=== PATIENT | female | born 1970 | race Caucasian/White ===

== ENCOUNTER → 2019-10-28 15:29 | Outpatient (CLI) | payer OTHER, SELFPAY ==
--- NOTE | ~2019-10-28 | MM_ITS ---
EXAMINATION: MM screening max BI w cornel HISTORY: Screening mammogram TECHNIQUE: Craniocaudal and mediolateral oblique 3-D tomosynthesis images were obtained and synthetic 2-D images were generated. CAD analysis was submitted and interpreted. COMPARISON: 11/14/2017 diagnostic right digital mammogram 04/21/2017 diagnostic right digital mammogram and complete right breast ultrasound 04/07/2017 bilateral digital screening mammogram BREAST PARENCHYMAL COMPOSITION: There are scattered areas of fibroglandular density. FINDINGS: There is no evidence of suspicious mass, calcification, or architectural distortion to sugg est malignancy in either breast. There has been no suspicious interval change. IMPRESSION: 1. No mammographic evidence of malignancy. 2. Recommend routine screening mammography in one year. BI-RADS Category 1: Negative Reviewed, dictated and finalized at location A. UCT MANAGER
== END ==
PROVIDERS: PCP Family Medicine; Visit Provider Family Medicine
DX: Z12.31 Encounter for screening mammogram for malignant neoplasm of breast (principal)
CPT/HCPCS: 77063; 77067

== ENCOUNTER 2019-11-27 01:00 | Day surgery (SDC) | payer OTHER, SELFPAY ==
[2019-11-22 11:20] VITALS: BMI 32.5
[2019-11-27 06:31] VITALS: BP 106/66; PULSE 77; RESP 16; TEMP 36.6; O2SAT 99
[2019-11-27] MEDS: LACTATED RINGERS 1,000 ML 150 ML IV CONT (06:42)
--- NOTE | 2019-11-27 07:24 | WPDANESEPPF ---
Anes - Initial Pre Proc Eval Procedure: Operation Date: 11/27/19 07:30 Proposed Procedures p Screening Colonoscopy - Rosendo Sanders MD Date/Time: 11/27/19 07:24 Surgeon: Rosendo Sanders MD Pre Op Diagnosis: neoplasm screening Patient Data Age: 49 Gender: F Height: 5 ft 9 in Weight: 100 kg Last Vital Signs Temp 97.8 F 11/27/19 06:31 Pulse 77 11/27/19 06:31 Resp 16 11/27/19 06:31 BP 106/66 11/27/19 06:31 Pulse Ox 99 11/27/19 06:31 Allergies Allergy/AdvReac Type Severity Reaction Status Date / Time aspirin AdvReac Mild bleeding Verified 11/27/19 06:30 Home Medications Medication Instructions Recorded Confirmed Type No Home Medications 11/27/19 11/27/19 History Patient hx anesthesia problems: none Family hx anesthesia problems: none PMFSH Past Medical History Medical History (Updated 11/27/19 @ 07:22 by Yordan Khan MD) GERD (gastroesophageal reflux disease) Migraine Family History Family History (Updated 12/23/16 @ 23:56 by DOCTOR UNKNOWN) Mother Hypertension Family history of elevated blood lipids Father Family history of malignant neoplasm of bone, Onset Age: 60 Patient's father is Social History Social History (Updated 09/09/19 @ 10:46 by Veronica Alexander) Smoking status: Former smoker Tobacco type: cigarettes Second hand tobacco smoke exposure: No Smoking end date: 09/18/02 Alcohol intake: current Substance use: never Substance use type: does not use Gender identity (if verbalized by the patient): Male Anes - Eval Final PreProcedure Day of Procedure 11/27/19 07:24 Patient weight: overweight Heart: regular rate and rhythm Lungs: clear to auscultation Airway: Mallampati scale class II Neurological: alert and oriented Last oral intake: >/= 8 hours ASA classification: II Emergent: no Anesthetic plan: proceed Anesthesia type and monitoring: general GIVS and standard monitoring Informed Consent: The patient's anesthetic plan and its attendant risks and benefits were discussed with the patient/family/POA. Questions were solicited and answers provided to the satisfaction of the patient/family/POA.
--- NOTE | 2019-11-27 08:01 | PM.HPGS ---
History of Present Illness History of Present Illness Consent: Risks, benefits, and alternatives have been discussed and questions answered. Patient agrees to proceed with procedure. Chief complaint: neoplasm screening Narrative: Amelia Landin is a 49 year old female here for first screening colonoscopy Review of Systems Constitutional: Constitutional: Denies headache(s) and Denies weakness Eyes: Eyes: Denies blurry vision ENT: Reports Normal hearing present, Denies headache(s) and Denies neck pain Cardiovascular: Cardiovascular: Denies chest pain and Denies dyspnea Respiratory: Respiratory: Denies dyspnea Gastrointestinal: Gastrointestinal: Reports no additional gastrointestinal complaints Genitourinary: Genitourinary: Denies dysuria Musculoskeletal: Musculoskeletal: Denies neck pain Integumentary/Breasts: Skin/Breast: Denies dry skin Neurologic: Reports Normal hearing present, Denies headache(s) and Denies weakness Psychiatric: Psychiatric: Denies anxiety Endocrine: Endocrine: Denies change in body appearance Hematologic/Lymphatic: Hematologic/Lymphatic: Denies easy bleeding Allergic/Immunologic: Allergic/Immunologic: Denies urticaria PMFSH Past Medical History Medical History (Updated 11/27/19 @ 07:22 by Yordan Khan MD) GERD (gastroesophageal reflux disease) Migraine Family History Family History (Updated 12/23/16 @ 23:56 by DOCTOR UNKNOWN) Mother Hypertension Family history of elevated blood lipids Father Family history of malignant neoplasm of bone, Onset Age: 60 Patient's father is Social History Social History (Updated 09/09/19 @ 10:46 by Veronica Alexander) Smoking status: Former smoker Tobacco type: cigarettes Second hand tobacco smoke exposure: No Smoking end date: 09/18/02 Alcohol intake: current Substance use: never Substance use type: does not use Gender identity (if verbalized by the patient): Male Meds Home Medications and Allergies Home Medications Medication Instructions Recorded Confirmed Type No Home Medications 11/27/19 11/27/19 History Allergies Allergy/AdvReac Type Severity Reaction Status Date / Time aspirin AdvReac Mild bleeding Verified 11/27/19 06:30 Vital Signs Vital Signs - 24 hr 11/27/19 06:31 Temperature 97.8 F Pulse Rate 77 Respiratory Rate 16 Blood Pressure 106/66 Pulse Oximetry 99 Exam Const: General: comfortable and no acute distress HENMT: General nose exam: Normal nares present Eyes: General: appearance normal, both eyes and all related structures Neck: Neck: no JVD Resp: Auscultation: clear to auscultation bilaterally Cardio: Rate: regular rate Rhythm: regular rhythm GI: Inspection: non-distended GI Palp: Yes Soft to palpation Skin: General skin exam: normal color Neuro: General: gait normal Speech: normal speech Extrem: General: normal to inspection Psych: Mental Status: mental status grossly normal Assessment and Plan Assessment and plan (1) Colon cancer screening: Code(s): Z12.11 - Encounter for screening for malignant neoplasm of colon Status: Acute Assessment and Plan: will proceed with colonoscopy
[2019-11-27 08:07] VITALS: BP 99/63; PULSE 73; RESP 20; O2SAT 97
[2019-11-27 08:17] VITALS: BP 104/71; PULSE 60; RESP 20; O2SAT 97
[2019-11-27 08:27] VITALS: BP 111/71; PULSE 67; RESP 20; O2SAT 100
== END 2019-11-27 08:37 | disposition home or self-care (01) ==
PROVIDERS: PCP Family Medicine; Visit Provider Internal Medicine Gastroenterology
PROC: 0DJD8ZZ Inspection of Lower Intestinal Tract, Via Natural or Artificial Opening Endoscopic (ICD-10-PCS; CPT 45378; principal; 2019-11-27 07:30)
DX: Z12.11 Encounter for screening for malignant neoplasm of colon (principal); D12.3 Benign neoplasm of transverse colon; D12.5 Benign neoplasm of sigmoid colon; K63.5 Polyp of colon; K21.9 Gastro-esophageal reflux disease without esophagitis; Z87.891 Personal history of nicotine dependence
CPT/HCPCS: 45385; 88305; J2704; J7120

== ENCOUNTER → 2021-02-09 17:16 | Outpatient (CLI) | payer OTHER, SELFPAY ==
--- NOTE | ~2021-02-09 | MM_ITS ---
EXAMINATION: MM screening max BI w cornel HISTORY: Screening mammogram TECHNIQUE: Craniocaudal and mediolateral oblique 3-D tomosynthesis images were obtained and synthetic 2-D images were generated. CAD analysis was submitted and interpreted. COMPARISON: 10/28/2019 bilateral digital screening mammogram 11/14/2017 diagnostic right mammogram 04/21/2017 diagnostic right digital mammogram and complete right breast ultrasound 04/07/2017 bilateral digital screening mammogram BREAST PARENCHYMAL COMPOSITION: There are scattered areas of fibroglandular density. FINDINGS: There is no evidence of suspicious mass, calcification, or architectural distortion to sugg est malignancy in either breast. There has been no suspicious interval change. IMPRESSION: 1. No mammographic evidence of malignancy. 2. Recommend routine screening mammography in one year. BI-RADS Category 1: Negative Reviewed, dictated and finalized at location A.
== END ==
PROVIDERS: PCP Family Medicine; Visit Provider Physician Assistant
DX: Z12.31 Encounter for screening mammogram for malignant neoplasm of breast (principal)
CPT/HCPCS: 77063; 77067

== ENCOUNTER 2021-11-01 11:01 | Outpatient (CLI) | payer OTHER, SELFPAY ==
--- NOTE | ~2021-11-01 | US_ITS ---
EXAMINATION: US soft tissue UE RT DATE: 11/01/2021 11:27 INDICATION: Lump at the posterior right upper arm TECHNIQUE: Multiple grayscale and Doppler ultrasound images of the region of concern at the posterior right upper arm were obtained. COMPARISON: None FINDINGS: There is an approximately 5.6 x 3.1 x 4.6 cm intramuscular hyperechoic mass with prominent posterior acoustic shadowing. The appearance suggests a macroscopic fat intramuscular lipoma. No other abnormal masses or fluid collections identified. IMPRESSION: 1. 5.6 x 2.1 x 4.6 cm mass with imaging features suggestive but not diagnostic of an intramuscular li flor or other fatty tumor which less likely could include liposarcoma. Would recommend correlation wi pre and postcontrast MRI or CT . Reviewed, dictated and finalized at location A. IAL PROCEDURE TECH IMPRESSION: 1. 5.6 x 2.1 x 4.6 cm mass with imaging features suggestive but not diagnostic of an intramuscular lipoma or other fatty tumor which less likely could include liposarcoma. Would recommend correlation with pre and postcontrast MRI or CT .
== END 2021-11-01 11:02 | disposition home or self-care (01) ==
LOC: ANHIMG 11:05
PROVIDERS: PCP Family Medicine; Visit Provider Family Medicine
DX: R22.31 Localized swelling, mass and lump, right upper limb (principal)
CPT/HCPCS: 76882

== ENCOUNTER 2021-11-08 15:48 | Outpatient (CLI) | payer OTHER, SELFPAY ==
--- NOTE | ~2021-11-08 | CT_ITS ---
EXAMINATION: CT UE RT w con DATE: 11/08/2021 16:24 INDICATION: Mass at the posterior right upper arm TECHNIQUE: High resolution computed tomography (CT) of the right upper arm was performed with 100 mL Omnipaque-350 intravenous contrast. Additional sagittal and coronal reconstructions were performed. A utomated exposure control and iterative reconstruction technique were employed. The dose-length produ ct was 928.64 mGy-cm. COMPARISON: Ultrasound dated 11/01/2021 FINDINGS: There is a 4.3 x 4.0 x 1.8 cm ovoid mass within the right triceps muscle belly which is predominantly of macroscopic fat attenuation but interspersed with somewhat heterogeneous hazy soft tissue density . No discrete nodular soft tissue densities. At the inferior aspect of the mass the soft tissue densi ty appears thin and linear suggesting muscle fibers which can be seen with an intramuscular lipoma. T he more amorphous density however remains indeterminate and could not exclude atypical lipoma or low- grade liposarcoma. No other masses or fluid collections identified. No pathologically enlarged right axillary lymphadenopathy. Mild right acromioclavicular osteoarthritis. Visualized bones are otherwise unremarkable. The gallbladder and visualized portions of the right kidney and right hepatic lobe are normal. IMPRESSION: 1. 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 The fat however does contain some amorphous soft tissue density and could not absolutely exclude atypical lipoma or low-grade liposarcoma. Would recommend further e valuation with pre and postcontrast MRI which will provide high resolution of the internal architectu re more definitive determination. Reviewed, dictated and finalized at location A. AND CUFF CUTTER IMPRESSION: 1. 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 The fat however petersen s contain some amorphous soft tissue density and could not absolutely exclude a typical lipoma or low-grade liposarcoma. Would recommend further evaluation wit h pre and postcontrast MRI which will provide high resolution of the internal a rchitecture more definitive determination.
== END 2021-11-08 15:49 | disposition home or self-care (01) ==
LOC: ANHIMG 15:53
PROVIDERS: PCP Family Medicine; Visit Provider Nurse Practitioner Gerontology
DX: R22.32 Localized swelling, mass and lump, left upper limb (principal)
CPT/HCPCS: 73201; Q9967

== ENCOUNTER → 2022-04-25 16:56 | Outpatient (CLI) | payer OTHER, SELFPAY ==
--- NOTE | ~2022-04-25 | MM_ITS ---
EXAMINATION: MM screening [facility] BI w cornel HISTORY: Screening mammogram TECHNIQUE: Craniocaudal and mediolateral oblique 3-D tomosynthesis images were obtained and synthetic 2-D images were generated. CAD analysis was submitted and interpreted. COMPARISON: 02/09/2021, 10/28/2019 BREAST PARENCHYMAL COMPOSITION: There are scattered areas of fibroglandular density. FINDINGS: There is no suspicious mass, calcification, or architectural distortion to suggest malignan cy in either breast. There has been no suspicious interval change. IMPRESSION: 1. No mammographic evidence of malignancy. 2. Recommend routine screening mammography in one year. BI-RADS Category 1: Negative Reviewed, dictated and finalized at location A.
== END ==
PROVIDERS: PCP Family Medicine; Visit Provider Nurse Practitioner Gerontology
DX: Z12.31 Encounter for screening mammogram for malignant neoplasm of breast (principal)
CPT/HCPCS: 77063; 77067

== ENCOUNTER 2023-04-13 08:07 | Outpatient (CLI) | payer OTHER, SELFPAY ==
--- NOTE | ~2023-04-13 | US_ITS ---
Pelvic ultrasound. Clinical History: Excessive and frequent menstruation Technique: Realtime transabdominal and transvaginal scanning of the pelvis was performed. Color flow Doppler and Doppler spectral analysis were performed. Findings: The uterus is anteverted, and measures 12.1 x 7.4 x 8.1 cm. The endometrial stripe has a t hickness of approximately 15 mm. No focal mass is identified. The right ovary measures 3.7 x 3.1 x 3.2 cm. No significant right ovarian or adnexal mass is seen. The left ovary measures 3.3 x 2.9 x 3.2 cm. No significant left ovarian or adnexal mass is seen. There is no evidence of free fluid in the cul de sac. Impression: Endometrial stripe is poorly delineated, but appears prominent, most likely related to stage in menst rual cycle. If patient is postmenopausal, then additional evaluation would be warranted to assess for endometrial hyperplasia or neoplasm. Reviewed, dictated and finalized at location . Impression: Endometrial stripe is poorly delineated, but appears prominent, most likely rel ated to stage in menstrual cycle. If patient is postmenopausal, then additional evaluation would be warranted to assess for endometrial hyperplasia or neoplas mEstrada
== END 2023-04-13 08:08 | disposition home or self-care (01) ==
PROVIDERS: PCP Family Medicine; Visit Provider Family Medicine
DX: N92.1 Excessive and frequent menstruation with irregular cycle (principal)
CPT/HCPCS: 76856

== ENCOUNTER → 2023-07-29 08:51 | Outpatient (CLI) | payer OTHER, SELFPAY ==
--- NOTE | ~2023-07-29 | MM_ITS ---
EXAMINATION: MM screening max BI w cornel HISTORY: Screening mammogram TECHNIQUE: Craniocaudal and mediolateral oblique 3-D tomosynthesis images were obtained and synthetic 2-D images were generated. CAD analysis was submitted and interpreted. COMPARISON: No prior mammogram is available for comparison at this institution. BREAST PARENCHYMAL COMPOSITION: 04/25/2022, 02/09/2021, 10/28/2019 bilateral screening mammogram examinat ions FINDINGS: 2 There is no evidence of suspicious mass, calcification, or architectural distortion to fry ggest malignancy in either breast. There has been no suspicious interval change. IMPRESSION: 1. No mammographic evidence of malignancy. 2. Recommend routine screening mammography in one year. BI-RADS Category 1: Negative Reviewed, dictated and finalized at location B. IFF
== END ==
PROVIDERS: PCP Family Medicine; Visit Provider Family Medicine
DX: Z12.31 Encounter for screening mammogram for malignant neoplasm of breast (principal)
CPT/HCPCS: 77063; 77067

== ENCOUNTER 2023-09-21 01:45 | Day surgery (SDC) | payer OTHER, SELFPAY ==
[2023-09-07 11:40] VITALS: BMI 36.4
--- NOTE | 2023-09-07 11:48 | PC.NURSE ---
Report to the Outpatient Waiting Room, entrance under the green pavilion located off [facility], at time _1130 on date __09/21/22 . Planned Procedure Time: __1330 . Time changes happen often and if your time is changed the preop area will call you the afternoon before. - You and your visitor will be asked to self-screen and do not enter if you have any COVID symptoms. - A mask is optional within the hospital at this time. Patients may have clear liquids (water, carbonated beverages, clear teas, apple juice) until 3 hours prior to surgery with a maximum of 20 ounces. - No food from midnight until time of surgery - Infants may have breast milk until 4 hours before surgery, formula 6 hours prior to surgery. - Children will be allowed to drink immediately following surgery. If applicable, please bring a bottle or sippy cup to assist with drinking. Juice, water, soda, and popsicles are readily available. For infants on formula, please bring formula the day of surgery. Pacifiers are allowed. Take the following medications with a SIP of water the morning of surgery: __N/A DO NOT STOP ANY OF YOUR OTHER PRESCRIPTION MEDICATIONS PRIOR TO SURGERY ?EXCEPT THE FOLLOWING Medications to discontinue per physician N/A Date to take last dose___N/A Please no make-up, nail british, hairspray, perfume, deodorant, or body powder the day of surgery. No jewelry (including any body piercings) or valuables the day of surgery, leave them at home. Please take a shower or bath the night before, or the morning of, surgery with an antibacterial soap. Wear comfortable, loose fitting clothing. Children are encouraged to wear pajamas. - Jewelry must be removed prior to entering the operating room. Rings and piercings that are not removed may be cut off. - The hospital will not accept responsibility for valuables. - Please leave all valuables, including medications, at home the day of surgery. If you are going home after surgery, a licensed truck driver supervisor must drive you home. - NO public transportation without another adult if you receive anesthesia. - We recommend that an adult stay with you for 24 hours following discharge. - We also recommend that you do not drive, make important decision, drink alcoholic beverages, or take any drugs that were not prescribed by your health care provider for at least 24 hours after your discharge time. For Pediatric surgeries, we recommend two adults accompany the child home. Follow any additional instructions given to you from your surgeon. If you or anyone in your household have experienced Covid symptoms in the past week, please notify your surgeon or the nurse liaison at the phone number below for possible testing. Telephone instructions given to __Amelia Lanidn and asked if any additional questions and then verbalized understanding. Patient advised to call surgeon office or pre surgery nurse liaison [phone] if any additional questions.
--- NOTE | 2023-09-21 09:47 | PM.IMHP ---
H&P: HPI History of Present Illness Date/Time: 09/21/23 09:47 Chief Complaint: abnormal uterine bleeding Narrative: 53-year-old female who presents for hysteroscopy and D&C for abnormal uterine bleeding. Patient has been dealing with heavy prolonged vaginal bleeding for some time. Pelvic ultrasound showed a globally enlarged uterus which I thickened endometrial lining. Recommended tissue sampling. Review of Systems Cardiovascular: Cardiovascular: Denies chest pain, Denies leg edema, Denies palpitations, Denies dyspnea and Denies dyspnea on exertion Respiratory: Respiratory: Denies cough, Denies dyspnea and Denies dyspnea on exertion Gastrointestinal: Gastrointestinal: Denies abdominal pain, Denies constipation, Denies diarrhea, Denies nausea and Denies vomiting Genitourinary: Genitourinary: Denies hematuria, Denies urinary frequency, Denies dysuria, Denies pelvic pain, Denies urinary incontinence and Denies vaginal discharge Neurologic: Reports system reviewed and no additional complaints, except as documented Psychiatric: Psychiatric: Reports no additional psychiatric complaints Endocrine: Endocrine: Denies palpitations PMFSH Past Medical History Medical History Breast mass, right Breast screening, unspecified (11/14/17) Chronic GERD GERD (gastroesophageal reflux disease) Lipid screening Migraine Migraine without aura and with status migrainosus, not intractable Mouth dryness Osteoarthritis of knees, bilateral Primary generalized (osteo)arthritis Tobacco abuse disorder Weight gain Surgical History Surgical History History of recent intraocular surgery January 2020 - vision correction of RT eye (lens replacement) S/P appendectomy 1973 Family History Family History Mother Hypertension Family history of elevated blood lipids Bladder cancer in the kidney; s/p nephrectomy 2016 Hypothyroidism Diabetes mellitus prediabetes GERD (gastroesophageal reflux disease) Allergies Father Liver cancer Patient's father is Lung cancer Heart disease Grandparent Melanoma, Onset Age: 40 maternal grandmother Sibling Allergies Social History Social History Social History: Smoking packs per day: 1 Smoking cigarettes per day: 20.0 Years smoked: 10 Smoking pack-years: 10.00 Smoking status: Former smoker Tobacco type: cigarettes Second hand tobacco smoke exposure: No Smoking end date: 09/18/02 Alcohol intake: never Alcohol use details: rarely-wine Substance use: never Substance use type: does not use Lack of Transportation: No Lack of Food: Never True Current Housing: I Have Housing Concerned About Future Housing: No Difficulty Paying Gas/Electric Bills: No Difficulty Paying for Meds: No Currently Unemployed: No Education: Decline to Answer Difficulty w/ Childcare or Family Care: No Living arrangements: with family Occupation/Education: occupation 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 Gender identity (if verbalized by the patient): Female Sexual Orientation (if Verbalized by the Patient): Straight or Heterosexual Spiritual care concerns: No Meds Home Medications and Allergies Home Medications Medication Instructions Recorded Confirmed Type omeprazole 20 mg capsule,delayed 20 mg PO DAILY #90 caps 11/15/22 09/07/23 Rx release pravastatin 20 mg tablet See Rx Instructions .Route 07/31/23 09/07/23 Rx .COMPLEX #90 tabs scopolamine base See Rx Instructions .Route .COMPLEX 09/07/23 09/07/23 History Allergies Allergy/AdvReac Type Severity Reaction Status Date / Time aspirin AdvReac Mild bleeding Verified 09/07/23 11:15 Exam Const:
[2023-09-21 12:29] VITALS: BP 163/84; PULSE 81; RESP 20; TEMP 36.9; O2SAT 99
[2023-09-21] MEDS: ACETAMINOPHEN 500 MG TABLET 1000 MG PO (12:32)
[2023-09-21] MEDS: LACTATED RINGERS 1,000 ML 30 ML IV CONT (12:40)
--- NOTE | 2023-09-21 12:42 | WPDANESEPPF ---
Anes - Initial Pre Proc Eval Procedure: Operation Date: 09/21/23 13:30 Proposed Procedures p Hysteroscopy Dilation and Curettage - Everette Moore MD Date/Time: 09/21/23 12:42 Surgeon: Everette Moore MD Pre Op Diagnosis: abnormal uterine bleeding Patient Data Age: 53 Gender: F Height: 1.75 m Weight: 114.8 kg Last Vital Signs Temp 98.5 F 09/21/23 12:29 Pulse 81 09/21/23 12:29 Resp 20 09/21/23 12:29 BP 163/84 H 09/21/23 12:29 Pulse Ox 99 09/21/23 12:29 O2 Del Method Room Air 09/21/23 12:29 Allergies Allergy/AdvReac Type Severity Reaction Status Date / Time aspirin AdvReac Mild bleeding Verified 09/21/23 12:07 Home Medications Medication Instructions Recorded Confirmed Type omeprazole 20 mg capsule,delayed 20 mg PO DAILY #90 caps 11/15/22 09/21/23 Rx release pravastatin 20 mg tablet See Rx Instructions .Route 07/31/23 09/21/23 Rx .COMPLEX #90 tabs scopolamine base See Rx Instructions .Route .COMPLEX 09/07/23 09/21/23 History Laboratory Tests 09/21/23 12:26 Hgb Pending Hct Pending Patient hx anesthesia problems: none Family hx anesthesia problems: none Results Review: All pre-operative results and documents have been reviewed as part of the pre-operative evaluation. [facility] Past Medical History Medical History Breast mass, right Breast screening, unspecified (11/14/17) Chronic GERD GERD (gastroesophageal reflux disease) Lipid screening Migraine Migraine without aura and with status migrainosus, not intractable Mouth dryness Osteoarthritis of knees, bilateral Primary generalized (osteo)arthritis Tobacco abuse disorder Weight gain Surgical History Surgical History History of recent intraocular surgery January 2020 - vision correction of RT eye (lens replacement) S/P appendectomy 1973 Family History Family History Mother Hypertension Family history of elevated blood lipids Bladder cancer in the kidney; s/p nephrectomy 2016 Hypothyroidism Diabetes mellitus prediabetes GERD (gastroesophageal reflux disease) Allergies Father Liver cancer Patient's father is Lung cancer Heart disease Grandparent Melanoma, Onset Age: 40 maternal grandmother Sibling Allergies Social History Social History Social History: Smoking packs per day: 1 Smoking cigarettes per day: 20.0 Years smoked: 10 Smoking pack-years: 10.00 Smoking status: Former smoker Tobacco type: cigarettes Second hand tobacco smoke exposure: No Smoking end date: 09/18/02 Alcohol intake: never Alcohol use details: rarely-wine Substance use: never Substance use type: does not use Lack of Transportation: No Lack of Food: Never True Current Housing: I Have Housing Concerned About Future Housing: No Difficulty Paying Gas/Electric Bills: No Difficulty Paying for Meds: No Currently Unemployed: No Education: Decline to Answer Difficulty w/ Childcare or Family Care: No Living arrangements: with family Occupation/Education: occupation 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
--- NOTE | 2023-09-21 12:44 | WPDHPUPDATE1 ---
History and Physical Update Update Date/Time: 09/21/23 12:44 History and Physical has been reviewed, including an updated exam of the patient. There are NO changes in the patient's condition. Risks, benefits, and alternatives have been discussed and questions answered. Patient agrees to proceed with procedure.
[2023-09-21 12:45] LABS: Hematocrit 36.4 % (37.0-47.0); Hemoglobin 10.7 g/dL (12.0-15.0)
[2023-09-21 13:57] VITALS: BP 108/67; PULSE 81; RESP 16; O2SAT 95
[2023-09-21 14:00] VITALS: BP 113/65; PULSE 73; RESP 18; O2SAT 96
--- NOTE | 2023-09-21 14:03 | W.PM.PROC2 ---
Procedure Note - Detailed Date of Procedure 09/21/23 Pre-op Diagnosis abnormal uterine bleeding Post-op Diagnosis Same Procedure Performed hysteroscopy dilation & curettage Surgeon Everette Moore MD Anesthesia General Indications abnormal uterine bleeding Findings globally thickened endometrium, central anterior uterine wall fibroid obstructing most of the cavity. Normal tubal ostia bilaterally Description of Procedure Amelia Landin presents for the above procedure. She was counseled as to the indications, risks, benefits, and alternatives to surgery, with the risks including bleeding, infection, damage to surrounding organs, VTE, and complications of anesthesia. Her verbal and written consent was obtained. PROCEDURE: The patient was taken to the OR and general anesthesia induced. She was prepped and draped in Wilson stirrups with support of the back and bilateral lower extremities. I/O catheterization performed of the bladder. The above findings were noted. A single tooth tenaculum was placed on the anterior lip of the cervix. The cervix was dilated with sequential Sada dilators. Hysteroscopy, using a normal saline medium, was performed and showed the above findings. Operative hysteroscopy was then performed. The hystroscopic resection blade was used to sample the tissue and restore normal anatomy. The anterior uterine fibroid was noted to be calcified and very difficult to resect. Approximately 1/3 of the fibroid was resected.. The tenaculum was removed and hemostasis was observed. The patient tolerated the procedure well. Sponge, lap, and needle counts were correct. The patient had SCD's on throughout the case for VTE prophylaxis. The patient was taken to the recovery room in stable condition. Estimated Blood Loss 5 Drains No Packing No Pathology Yes (endometrial curettings ) Complications No immediate complications Condition Stable Disposition PACU [facility] Billing Surgery - Charge Forward: Surgery Billing
[2023-09-21 14:30] VITALS: BP 114/71; PULSE 74; RESP 18; O2SAT 97
[2023-09-21 15:00] VITALS: BP 115/66; PULSE 73; RESP 17
[2023-09-21 15:22] VITALS: BP 118/65; PULSE 68; RESP 17
== END 2023-09-21 15:25 | disposition home or self-care (01) ==
PROVIDERS: PCP Family Medicine; Visit Provider Student in an Organized Health Care Education/Training Program
PROC: 0U5B8ZZ Destruction of Endometrium, Via Natural or Artificial Opening Endoscopic (ICD-10-PCS; CPT 58563; principal; 2023-09-21 13:30)
DX: N93.9 Abnormal uterine and vaginal bleeding, unspecified (principal); K21.9 Gastro-esophageal reflux disease without esophagitis; E66.9 Obesity, unspecified; Z68.37 Body mass index [BMI] 37.0-37.9, adult; Z98.890 Other specified postprocedural states; Z87.891 Personal history of nicotine dependence; Z80.52 Family history of malignant neoplasm of bladder; Z80.1 Family history of malignant neoplasm of trachea, bronchus and lung; Z80.8 Family history of malignant neoplasm of other organs or systems; Z80.0 Family history of malignant neoplasm of digestive organs; Z82.49 Family history of ischemic heart disease and other diseases of the circulatory system
CPT/HCPCS: 58558; 36415; 85014; 85018; 88305; A9270; J2250; J2704; J3010; J7120

== ENCOUNTER 2024-08-27 01:20 | Day surgery (SDC) | payer OTHER, SELFPAY ==
[2024-08-12 11:32] VITALS: BMI 31.8
[2024-08-27 09:29] VITALS: BP 145/83; PULSE 87; RESP 16; TEMP 36.2; O2SAT 98; BMI 37.9
[2024-08-27] MEDS: LACTATED RINGERS 1,000 ML 150 ML IV CONT (09:37)
--- NOTE | 2024-08-27 09:40 | P.PNAN_ITS ---
Anes - Initial Pre Proc Eval Procedure: Operation Date: 08/27/24 10:30 Proposed Procedures p Colonoscopy - Rosendo Sanders MD Date/Time: 08/27/24 09:40 Surgeon: Rosendo Sanders MD Pre Op Diagnosis: hx colon polyps, hypercholesterolmia, fatigue Patient Data Age: 54 Gender: F Height: 1.75 m Weight: 116.5 kg Last Vital Signs Temp 36.2 C L 08/27/24 09:29 Pulse 87 08/27/24 09:29 Resp 16 08/27/24 09:29 BP 145/83 H 08/27/24 09:29 Pulse Ox 98 08/27/24 09:29 O2 Del Method Room Air 08/27/24 09:29 Allergies Allergy/AdvReac Type Severity Reaction Status Date / Time aspirin AdvReac Mild bleeding Verified 08/27/24 09:27 Home Medications ?Medication ?Instructions ?Recorded ?Confirmed ?Type ibuprofen 600 mg tablet 600 mg PO Q6H PRN pain #30 tabs 09/21/23 08/12/24 Rx omeprazole 20 mg capsule,delayed 20 mg PO DAILY #90 caps 03/12/24 08/27/24 Rx release pravastatin 20 mg tablet See Rx Instructions .Route 03/12/24 08/27/24 Rx .COMPLEX #90 tabs scopolamine base 1 mg over 3 days 1 patch transdermal Q3D #4 ea 03/13/24 08/12/24 Rx transdermal patch meclizine 25 mg PO DAILY Vertigo 08/12/24 08/27/24 History Patient hx anesthesia problems: none Family hx anesthesia problems: post op nausea/vomiting Results Review: All pre-operative results and documents have been reviewed as part of the pre- operative evaluation. [facility] Past Medical History Medical History Weight gain Migraine without aura and with status migrainosus, not intractable Tobacco abuse disorder Primary generalized (osteo)arthritis Mouth dryness Lipid screening Chronic GERD Breast screening, unspecified (11/14/17) Breast mass, right Osteoarthritis of knees, bilateral GERD (gastroesophageal reflux disease) Migraine Surgical History Surgical History H/O gynecological procedure 1/4/24 hscope d&c S/P appendectomy 1973 History of recent intraocular surgery January 2020 - vision correction of RT eye (lens replacement) Family History Family History Mother Hypertension Family history of elevated blood lipids Bladder cancer in the kidney; s/p nephrectomy 2016 Hypothyroidism Diabetes mellitus prediabetes GERD (gastroesophageal reflux disease) Allergies Father Liver cancer Patient's father is Lung cancer Heart disease Grandparent Melanoma, Onset Age: 40 maternal grandmother Sibling Allergies Social History Social History Social History: Smoking packs per day: 1 Smoking cigarettes per day: 20.0 Years smoked: 10 Smoking pack-years: 10.00 Smoking status: Former smoker Tobacco type: cigarettes Second hand tobacco smoke exposure: No Smoking end date: 09/18/02 Alcohol intake: current Alcohol use details: once a month Substance use: never Substance use type: does not use Do You Feel Safe in your Home?: Yes Lack of Transportation: No Lack of Food: Never True Current Housing: I Have Housing Concerned About Future Housing: No Difficulty Paying Gas/Electric Bills: No Difficulty Paying for Meds: No Currently Unemployed: No Education: Master's Degree or Higher Difficulty w/ Childcare or Family Care: No Living arrangements: with family Occupation/Education: occupation 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 Gender identity (if verbalized by the patient): Female Sexual Orientation (if Verbalized by the Patient): Straight or Heterosexual Spiritual care concerns: No Anes - Eval Final PreProcedure Day of Procedure 08/27/24 09:40 Patient weight: obese Heart: regular rate and rhythm Lungs: decreased breath sounds Airway: Mallampati scale class II Neurological: alert and oriented Last oral intake: >/= 8 hours ASA classification: III Emergent: no Anesthetic plan: proceed Anesthesia type and monitoring: general GIVS and standard monitoring Results Review: All pre-operative results and documents have been reviewed as part of the pre- operative evaluation. Informed Consent: The patient's anesthetic plan and its attendant risks and benefits were discussed with the patient/family/POA. Questions were solicited and answers provided to the satisfaction of the patient/family/POA.
--- NOTE | 2024-08-27 09:44 | PM.HPGS ---
History of Present Illness History of Present Illness Consent: Risks, benefits, and alternatives have been discussed and questions answered. Patient agrees to proceed with procedure. Chief complaint: hx colon polyps Narrative: Amelia Landin is a 54 year old female with colon polyp in 2019 Review of Systems Review of Systems: All systems reviewed & are unremarkable except as noted in HPI and below PMFSH Past Medical History Medical History Weight gain Migraine without aura and with status migrainosus, not intractable Tobacco abuse disorder Primary generalized (osteo)arthritis Mouth dryness Lipid screening Chronic GERD Breast screening, unspecified (11/14/17) Breast mass, right Osteoarthritis of knees, bilateral GERD (gastroesophageal reflux disease) Migraine Surgical History Surgical History H/O gynecological procedure 09/21/23 hscope d&c S/P appendectomy 1974 History of recent intraocular surgery January 2020 - vision correction of RT eye (lens replacement) Family History Family History Mother Hypertension Family history of elevated blood lipids Bladder cancer in the kidney; s/p nephrectomy 2016 Hypothyroidism Diabetes mellitus prediabetes GERD (gastroesophageal reflux disease) Allergies Father Liver cancer Patient's father is Lung cancer Heart disease Grandparent Melanoma, Onset Age: 40 maternal grandmother Sibling Allergies Social History Social History Social History: Smoking packs per day: 1 Smoking cigarettes per day: 20.0 Years smoked: 10 Smoking pack-years: 10.00 Smoking status: Former smoker Tobacco type: cigarettes Second hand tobacco smoke exposure: No Smoking end date: 09/18/02 Alcohol intake: current Alcohol use details: once a month Substance use: never Substance use type: does not use Do You Feel Safe in your Home?: Yes Lack of Transportation: No Lack of Food: Never True Current Housing: I Have Housing Concerned About Future Housing: No Difficulty Paying Gas/Electric Bills: No Difficulty Paying for Meds: No Currently Unemployed: No Education: Master's Degree or Higher Difficulty w/ Childcare or Family Care: No Living arrangements: with family Occupation/Education: occupation 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 Gender identity (if verbalized by the patient): Female Sexual Orientation (if Verbalized by the Patient): Straight or Heterosexual Spiritual care concerns: No Meds Home Medications and Allergies Home Medications ?Medication ?Instructions ?Recorded ?Confirmed ?Type ibuprofen 600 mg tablet 600 mg PO Q6H PRN pain #30 tabs 09/21/23 08/12/24 Rx omeprazole 20 mg capsule,delayed 20 mg PO DAILY #90 caps 03/12/24 08/27/24 Rx release pravastatin 20 mg tablet See Rx Instructions .Route 03/12/24 08/27/24 Rx .COMPLEX #90 tabs scopolamine base 1 mg over 3 days 1 patch transdermal Q3D #4 ea 03/13/24 08/12/24 Rx transdermal patch meclizine 25 mg PO DAILY Vertigo 08/12/24 08/27/24 History Allergies Allergy/AdvReac Type Severity Reaction Status Date / Time aspirin AdvReac Mild bleeding Verified 08/27/24 09:27 Vital Signs Vital Signs - 24 hr 08/27/24 09:29 Temperature 97.1 F L Pulse Rate 87 Respiratory Rate 16 Blood Pressure 145/83 H Pulse Oximetry 98 Oxygen Delivery Room Air Exam Const: General: comfortable and no acute distress HENMT: Face/Nose/Sinus: Normal nares present Eyes: General: appearance normal, both eyes and all related structures Neck: Neck: no JVD Resp: Auscultation: clear to auscultation bilaterally Cardio: Rate: regular rate Rhythm: regular rhythm GI: Inspection: non-distended GI Palp: Yes Soft to palpation Skin: General skin exam: normal color Neuro: General: gait normal Speech: normal speech Extrem: General: normal to inspection Psych: Mental Status: mental status grossly normal Assessment and Plan Assessment and plan (1) Colon polyps: Code(s): K63.5 - Polyp of colon Status: Acute Assessment and Plan: colonoscopy
[2024-08-27 10:00] VITALS: BP 133/79; PULSE 92; RESP 18; O2SAT 94
[2024-08-27 10:10] VITALS: BP 132/79; PULSE 81; RESP 18; O2SAT 95
[2024-08-27 10:20] VITALS: BP 126/76; PULSE 78; RESP 20; O2SAT 97
== END 2024-08-27 10:30 | disposition home or self-care (01) ==
PROVIDERS: PCP Family Medicine; Visit Provider Internal Medicine Gastroenterology
PROC: 0DJD8ZZ Inspection of Lower Intestinal Tract, Via Natural or Artificial Opening Endoscopic (ICD-10-PCS; CPT 45378; principal; 2024-08-27 10:30)
DX: Z12.11 Encounter for screening for malignant neoplasm of colon (principal); D12.3 Benign neoplasm of transverse colon; K64.8 Other hemorrhoids; K21.9 Gastro-esophageal reflux disease without esophagitis; M17.0 Bilateral primary osteoarthritis of knee; E66.9 Obesity, unspecified; Z68.37 Body mass index [BMI] 37.0-37.9, adult; Z79.1 Long term (current) use of non-steroidal anti-inflammatories (NSAID); Z98.890 Other specified postprocedural states; Z87.891 Personal history of nicotine dependence; Z80.52 Family history of malignant neoplasm of bladder; Z80.0 Family history of malignant neoplasm of digestive organs; Z80.1 Family history of malignant neoplasm of trachea, bronchus and lung; Z80.8 Family history of malignant neoplasm of other organs or systems; Z82.49 Family history of ischemic heart disease and other diseases of the circulatory system
CPT/HCPCS: 45385; 88305; J2704; J7120

== ENCOUNTER 2024-09-03 13:48 | Outpatient (CLI) | payer OTHER, SELFPAY ==
--- NOTE | ~2024-09-03 | MM_ITS ---
EXAMINATION: MM screening max BI w cornel HISTORY: Screening TECHNIQUE: Craniocaudal and mediolateral oblique 3-D tomosynthesis images were obtained and synthetic 2-D images were generated. CAD analysis was submitted and interpreted. COMPARISON: Comparison to multiple prior studies sequentially, with oldest reviewed study dated 02/09. BREAST PARENCHYMAL COMPOSITION: Not dense: There are scattered areas of fibroglandular density. FINDINGS: There is no evidence of suspicious mass, calcification, or architectural distortion to sugg est malignancy in either breast. There has been no suspicious interval change. IMPRESSION: 1. No mammographic evidence of malignancy. 2. Recommend routine screening mammography in one year. BI-RADS Category 1: Negative Reviewed, dictated and finalized at location B. TECHNIC MIXER
== END 2024-09-03 13:49 | disposition home or self-care (01) ==
LOC: MICIMG 13:49
PROVIDERS: PCP Family Medicine; Visit Provider Physician Assistant
DX: Z12.31 Encounter for screening mammogram for malignant neoplasm of breast (principal)
CPT/HCPCS: 77063; 77067

== ENCOUNTER 2024-10-07 15:26 | Outpatient (CLI) | payer OTHER, SELFPAY ==
--- NOTE | ~2024-10-07 | US_ITS ---
EXAMINATION: US pelvic complete w TV DATE: 10/07/2024 16:00 INDICATION: Abnormal uterine and vaginal bleeding. TECHNIQUE: Multiple transabdominal and endovaginal sonographic images of the pelvis were obtained. COMPARISON: None. FINDINGS: The uterus measures 10.2 x 7.7 x 6.2 cm. The endometrial complex measures 11 mm in thickness. 2.6 x 2.1 x 2.4 cm hypoechoic likely fibroid along the anterior uterine body. There is suggestion of a poss ible second 2.5 x 2.0 x 2.0 cm mass centrally at the fundus which could represent a second fibroid ho wever evaluation is limited by refraction artifact from the anterior margin of the uterus projecting across the more posterior uterus. Couple anechoic nabothian cysts at the cervix the largest measuring 6 mm. The bilateral ovaries are not visualized. There is no free fluid in the pelvis. IMPRESSION: 1. Suggestion of a couple hypoechoic uterine fibroids. Evaluation is however limited by suboptimal vi sualization of the uterus on both the transabdominal and transvaginal imaging. Could consider MRI for further evaluation. Reviewed, dictated and finalized at location A. SROOM SUPERVISOR IMPRESSION: 1. Suggestion of a couple hypoechoic uterine fibroids. Evaluation is however li mited by suboptimal visualization of the uterus on both the transabdominal and transvaginal imaging. Could consider MRI for further evaluation.
== END 2024-10-07 15:27 | disposition home or self-care (01) ==
LOC: MICIMG 15:26
PROVIDERS: PCP Student in an Organized Health Care Education/Training Program; Visit Provider Student in an Organized Health Care Education/Training Program
DX: N93.9 Abnormal uterine and vaginal bleeding, unspecified (principal)
CPT/HCPCS: 76830; 76856